=== PATIENT | male | born 1965 | race Caucasian/White ===

== ENCOUNTER 2019-06-17 00:05 | Emergency (ER) | payer SELFPAY ==
[~2019-06-17] VITALS: Ht 177.8 cm; Wt 86.2 kg
[~2019-06-17 00:05] MED LIST: HYDR-2761 PO
[2019-06-17 00:10] VITALS: BP 145/94
[2019-06-17] MEDS ORDERED: LIDOCAINE 1%/EPI 1:100,000 20 ML VIAL. INJ ONE (00:30)
--- NOTE | 2019-06-17 00:50 | PHYS DOC ---
Past Medical History Past Medical History: Anxiety, Arthritis Additional Past Surgical Histo: ACL, RIGHT ANKLE PINS Alcohol Use: Occasionally Drug Use: Marijuana Adult General Chief Complaint Chief Complaint: FOOT INJURY PAIN HPI HPI 53-year-old male presents to the emergency department with complaints of mulch splinter in his left foot. Patient states he was not wearing shoes at the time however was wearing her socks. Patient states last tetanus shot was within the last 7 years. Attempted to remove the splinter at home however was unable to. Patient denies any fever, chills, nausea, vomiting, abdominal pain. All other ROS negative unless documented in HPI Review of Systems Review of Systems See Above Current Medications Current Medications Current Medications Medications (Trade) Dose Ordered Sig/Josh Start Time Stop Time Status Last Admin Dose Admin Lidocaine/ Epinephrine (LIDOCAINE 1%-EPI 1:100,000 Multi-Dose) 20 ml 1X ONCE 06/17/19 00:30 06/17/19 00:31 DC 06/17/19 00:33 20 ML Allergies Allergies Allergies Coded Allergies Type Severity Reaction Last Updated Verified No Known Drug Allergies 02/28/18 No Physical Exam Physical Exam See Above Constitutional: Well developed, well nourished, no acute distress, non-toxic appearance. [] Cardiovascular:Heart rate regular rhythm, no murmur [] Lungs & Thorax: Bilateral breath sounds clear to auscultation [] Skin: Warm, dry, no erythema, no rash. [] Extremities: No tenderness, no edema. Pain to left heel with obvious puncture entrance [] Neurologic: Alert and oriented X 3, no focal deficits noted. [] Psychologic: Affect normal, judgement normal, mood normal. [] Current Patient Data Vital Signs Vital Signs Date Time Temp Pulse Resp B/P (MAP) Pulse Ox O2 Delivery O2 Flow Rate FiO2 06/17/19 00:10 98.4 94 21 145/94 (111) 97 Room Air 98.4 EKG EKG [] Radiology/Procedures Radiology/Procedures [] Course & Med Decision Making Course & Med Decision Making Pertinent Labs and Imaging studies reviewed. (See chart for details) []53-year-old male presents to the emergency department with complaints of mulch splinter in his left foot. Patient states he was not wearing shoes at the time however was wearing her socks. Patient states last tetanus shot was within the last 7 years. Attempted to remove the splinter at home however was unable to. Patient denies any fever, chills, nausea, vomiting, abdominal pain. 8 cc lido with epi used to numb area Hibiclenz used to clean heel 11blade scalpel with incision to help widen the wound, hemostats used to remove 1inch piece of mulch Tetanus up to date Plan abx therapy upon discharge for 7 days Jermaine Disclaimer Dragon Disclaimer This electronic medical record was generated, in whole or in part, using a voice recognition dictation system. Departure Departure Impression: Primary Impression: Foreign body (FB) in soft tissue Disposition: HOME, SELF-CARE Condition: IMPROVED Referrals: NO PCP (PCP) Patient Instructions: Foreign Body Additional Instructions: Recommend follow up with PCP 3 - 5 days Return to the ER with worsening symptoms, intractable pain, fever, altered mental status Tylenol/Motrin as needed for pain Take antibiotics as prescribed Watch for signs of infection - see instructions Scripts Amoxicillin/Potassium Clav (AUGMENTIN 875-125 TABLET) 1 Each Tablet 1 TAB PO Q12HR for 7 Days, #14 TAB Prov: BAUTISTA EVERETT MD 06/17/19 BAUTISTA EVERETT MD Jun 17, 2019 00:50
[2019-06-17] MEDS ORDERED: AMOX1TAB61 PO (00:57)
== END 2019-06-17 01:00 | disposition home or self-care (01) ==
LOC: ER 00:05
DX: S90.852A Superficial foreign body, left foot, initial encounter (principal); F41.9 Anxiety disorder, unspecified; M19.90 Unspecified osteoarthritis, unspecified site; F12.90 Cannabis use, unspecified, uncomplicated; Z98.890 Other specified postprocedural states; W45.8XXA Other foreign body or object entering through skin, initial encounter; Y93.89 Activity, other specified; Y92.89 Other specified places as the place of occurrence of the external cause; Y99.8 Other external cause status
CPT/HCPCS: 10120; 99284; J3490